=== PATIENT | female | born 1995 | race Caucasian/White ===

== ENCOUNTER 2020-05-03 09:13 | Outpatient (REF) | payer OTHER, SELFPAY ==
[2020-05-03 10:31] LABS: MANUAL DIFF FLAG NO
[2020-05-03 10:45] LABS: Glucose Urine UA NEG (NEG); Leukocyte Esterase Urine NEG (NEG); Nitrite Urine NEG (NEG); Specific Gravity - Urine >= 1.030 (1.005-1.025); Urine Blood NEG (NEG); Urine Ketones NEG (NEG); Urine Protein NEG (NEG-TRACE)
[2020-05-03 10:46] LABS: Basophils Absolute Auto 0.1 X10*3/uL (0.0-0.2); Eosinophils Absolute Auto 0.2 X10*3/uL (0.0-0.4); Hematocrit 42.1 % (37-47); Hemoglobin 13.6 g/dl (12.0-16.0); Imm Gran Abs Auto 0.02 X10*3/uL (0.00-0.03); Imm Gran Pct Auto 0.3 % (0.0-0.4); Lymphocytes Absolute Auto 2.1 X10*3/uL (1.2-4.9); Lymphocytes Percent Auto 34.1 % (20-40); Mean Corpuscular HGB Conc 32.3 g/dl (31.0-35.0); Mean Corpuscular Hemoglobin 30.2 pg (27.0-33.0); Mean Corpuscular Volume 93.3 fL (80-98); Mean Platelet Volume 11.3 fL (9.4-12.3); Monocytes Absolute Auto 0.6 X10*3/uL (0.1-1.2); Monocytes Percent Auto 9.5 % (2-11); Neutrophils Absolute Auto 3.2 X10*3/uL (2.0-8.3); Neutrophils Percent Auto 52.1 % (45-73); Platelet Count 211 X10*3/uL (160-400); Red Blood Count 4.51 X10*6/uL (4.20-5.50); White Blood Count 6.1 X10*3/uL (4.8-10.8)
[2020-05-03 10:48] LABS: Appearance Urine CLEAR; Color Urine YELLOW
[2020-05-03 11:05] LABS: Bacteria Urine TRACE /LPF; Hyaline Casts Urine 0-2 /LPF; Mucus Urine 3+ /LPF; RBC Urine 0-2 /HPF (0); Squamous Epithelial Cell Urine 2+ /LPF; WBC Urine 0-2 /HPF (0-4)
[2020-05-03 11:07] LABS: Alanine Aminotransferase 11 U/L (0-31); Albumin Level 4.7 g/dL (3.5-5.0); Alkaline Phosphatase 75 U/L (39-117); Anion Gap 11 (12-20); Aspartate Amino Transferase 16 U/L (5-31); Bilirubin Total 0.7 mg/dL (0.0-1.0); Blood Urea Nitrogen 12 mg/dL (9-16); Calcium 9.6 mg/dL (8.4-10.2); Carbon Dioxide 30 mmol/L (22-29); Chloride 104 mmol/L (96-108); Cholesterol 168 mg/dL; Estimated Glomerular Filt Rate > 60; Glucose Random 91 mg/dL (60-115); HDL Cholesterol 50 mg/dL; LDL Cholesterol Calculated 103 mg/dl; Potassium 4.9 mmol/l (3.3-5.1); Sodium 140 mmol/L (135-145); Total Protein 7.4 g/dL (6.5-8.0); Triglycerides 77 mg/dL
[2020-05-03 11:33] LABS: Free T4 (Free Thyroxine) 1.19 ng/dL (0.71-1.85); HCG Quantitative 6 mIU/mL; Thyroid Stimulating Hormone 0.76 uIU/mL (0.32-4.0)
[2020-05-03 11:36] LABS: Vitamin B12 380 pg/mL (200-900)
== END 2020-05-03 09:14 | disposition home or self-care (01) ==
LOC: HO.LAB 09:13
PROVIDERS: PCP Internal Medicine; Visit Provider Internal Medicine
DX: N92.6 Irregular menstruation, unspecified (principal); R63.4 Abnormal weight loss; E78.00 Pure hypercholesterolemia, unspecified
CPT/HCPCS: 36415; 80053; 80061; 81001; 82607; 82746; 84439; 84443; 84702; 85025

== ENCOUNTER 2020-06-26 14:34 | Outpatient (REF) | payer OTHER, SELFPAY ==
[2020-06-27 09:23] LABS: BV Int Neg Control Negative (Negative); BV Int Pos Control Positive (Positive)
[2020-06-28 09:47] LABS: C. trachomatis RNA TMA NOT DETECTED (NOT DETECTED); N. gonorrhoeae RNA TMA NOT DETECTED (NOT DETECTED)
== END 2020-06-26 14:35 | disposition home or self-care (01) ==
LOC: HO.LAB 14:34
PROVIDERS: PCP Internal Medicine; Visit Provider Advanced Practice Midwife
DX: N92.1 Excessive and frequent menstruation with irregular cycle (principal); R10.2 Pelvic and perineal pain; Z20.2 Contact with and (suspected) exposure to infections with a predominantly sexual mode of transmission; Z32.02 Encounter for pregnancy test, result negative
CPT/HCPCS: 36415; 81025; 87480; 87491; 87510; 87591; 87660; 99202

== ENCOUNTER 2020-06-29 14:57 | Outpatient (REF) | payer OTHER, SELFPAY ==
--- NOTE | ~2020-06-29 | US_ITS ---
EXAMINATION: US PELVIS COMPLETE US TRANSVAGINAL CLINICAL INFORMATION: Pelvic and perineal pain. COMPARISON: None TECHNIQUE: Transabdominal and transvaginal ultrasound of the pelvis was performed. FINDINGS: The uterus is anteverted measuring 8.3 cm in length, 4.0 cm AP and 3.3 cm in transverse dimensions. The endometrial thickness is 0.3 cm. The right ovary measures 4.2 x 3.2 x 2.8 cm and volume 19.7 mL. There is a small corpus luteal cyst measuring 1.6 x 1.9 x 2.1 cm. The left ovary measures 3.9 x 2.1 x 2.2 cm and volume 9.4 mL. There are small follicles noted. There is no free fluid in the cul-de-sac. US/US pelvic complete IMPRESSION: Small corpus luteal cyst right ovary. The left ovary and the uterus are unremarkable.
--- NOTE | ~2020-06-29 | US_ITS ---
EXAMINATION: US PELVIS COMPLETE US TRANSVAGINAL CLINICAL INFORMATION: Pelvic and perineal pain. COMPARISON: None TECHNIQUE: Transabdominal and transvaginal ultrasound of the pelvis was performed. FINDINGS: The uterus is anteverted measuring 8.3 cm in length, 4.0 cm AP and 3.3 cm in transverse dimensions. The endometrial thickness is 0.3 cm. The right ovary measures 4.2 x 3.2 x 2.8 cm and volume 19.7 mL. There is a small corpus luteal cyst measuring 1.6 x 1.9 x 2.1 cm. The left ovary measures 3.9 x 2.1 x 2.2 cm and volume 9.4 mL. There are small follicles noted. There is no free fluid in the cul-de-sac. US/US transvaginal IMPRESSION: Small corpus luteal cyst right ovary. The left ovary and the uterus are unremarkable.
[2020-06-29 17:24] LABS: Thyroid Stimulating Hormone 0.73 uIU/mL (0.32-4.0)
[2020-06-30 08:48] LABS: CT PCR NOT DETECTED (Not Detect.); NG PCR NOT DETECTED (Not Detect.)
[2020-06-30 12:22] LABS: Prolactin 3.7 ng/mL
== END 2020-06-29 14:58 | disposition home or self-care (01) ==
LOC: HO.US 14:57
PROVIDERS: Absent Provider Advanced Practice Midwife; PCP Family Medicine; Visit Provider Advanced Practice Midwife
DX: R10.2 Pelvic and perineal pain (principal); Z11.3 Encounter for screening for infections with a predominantly sexual mode of transmission; Z11.8 Encounter for screening for other infectious and parasitic diseases
CPT/HCPCS: 76830; 76856; 84146; 84443; 87491; 87591

== ENCOUNTER → 2020-07-10 11:49 | Outpatient (BNVA) | payer OTHER, SELFPAY | PROVIDERS: PCP Family Medicine; Visit Provider Advanced Practice Midwife ==

== ENCOUNTER 2020-07-11 15:57 | Outpatient (REF) | payer OTHER, SELFPAY ==
[2020-07-12 09:02] LABS: DHEA Sulfate 234 mcg/dL (18-391)
[2020-07-12 11:41] LABS: CT PCR NOT DETECTED (Not Detect.); NG PCR NOT DETECTED (Not Detect.)
[2020-07-15 12:31] LABS: Testosterone, Free 1.6 pg/mL (0.1-6.4); Testosterone, Total 20 ng/dL (2-45)
== END 2020-07-11 15:58 | disposition home or self-care (01) ==
LOC: HO.LAB 15:57
PROVIDERS: PCP Internal Medicine; Visit Provider Advanced Practice Midwife
DX: N93.9 Abnormal uterine and vaginal bleeding, unspecified (principal); L70.0 Acne vulgaris; N92.6 Irregular menstruation, unspecified; R10.2 Pelvic and perineal pain
CPT/HCPCS: 82627; 83498; 84402; 84403; 87491; 87591

== ENCOUNTER → 2020-07-24 12:03 | Outpatient (BNVA) | payer OTHER, SELFPAY | PROVIDERS: PCP Internal Medicine; Visit Provider Advanced Practice Midwife ==

== ENCOUNTER 2020-07-25 13:09 | Outpatient (REF) | payer OTHER, SELFPAY | END 2020-07-25 13:10 | disposition home or self-care (01) | LOC: HO.LAB 13:09 | PROVIDERS: PCP Internal Medicine; Visit Provider Advanced Practice Midwife | DX: Z01.419 Encounter for gynecological examination (general) (routine) without abnormal findings (principal) | CPT/HCPCS: 88142 ==

== ENCOUNTER 2020-08-17 08:29 | Outpatient (REF) | payer OTHER, SELFPAY ==
[2020-08-18 22:43] LABS: Adrenocorticotropic Hormone 14 pg/mL (6-50)
== END 2020-08-17 08:30 | disposition home or self-care (01) ==
LOC: HO.LAB 08:29
PROVIDERS: PCP Internal Medicine; Referring Provider Internal Medicine; Visit Provider Internal Medicine Endocrinology, Diabetes & Metabolism
DX: I95.1 Orthostatic hypotension (principal); R63.4 Abnormal weight loss; Z79.899 Other long term (current) drug therapy
CPT/HCPCS: 36415; 82024; 82533; 99202

== ENCOUNTER 2020-08-18 07:23 | Outpatient (REF) | payer OTHER, SELFPAY ==
[2020-08-18 08:45] LABS: Anion Gap 15 (12-20); Blood Urea Nitrogen 10 mg/dL (9-16); Calcium 9.3 mg/dL (8.4-10.2); Carbon Dioxide 24 mmol/L (22-29); Chloride 104 mmol/L (96-108); Estimated Glomerular Filt Rate > 60; Glucose Fasting 91 mg/dL (60-99); Potassium 4.7 mmol/L (3.3-5.1); Sodium 138 mmol/L (135-145)
[2020-08-18 09:08] LABS: Thyroid Stimulating Hormone 0.74 uIU/mL (0.32-4.0)
[2020-08-19 05:36] LABS: Thyroglobulin Antibodies <1 IU/mL (< or = 1)
[2020-08-19 10:02] LABS: Thyroid Peroxidase Antibodies <1 IU/mL (<9)
[2020-08-19 22:21] LABS: Triiodothyronine T3 Total 105 ng/dL (76-181)
[2020-08-21 11:42] LABS: Insulin Level Total 7.1 uIU/mL
[2020-08-21 16:52] LABS: Prolactin Undiluted 16.4 ng/mL
[2020-08-21 23:12] LABS: Adrenocorticotropic Hormone 34 pg/mL (6-50)
[2020-08-23 04:56] LABS: Proinsulin 4.7 pmol/L (< OR = 18.8)
[2020-08-23 13:01] LABS: IGF-1 (Somatomedin C) 220 ng/mL (63-373); IGF-1 Z Score (Female) 0.5 SD (-2.0 - +2.0)
[2020-08-23 21:11] LABS: Insulin Auto Antibody <0.4 U/mL (<0.4)
[2020-08-23 21:57] LABS: 21 Hydroxylase Antibody NEGATIVE (NEGATIVE)
[2020-08-25 00:57] LABS: FT4 by Equilib. Dialysis 1.6 ng/dL (0.9-2.2)
[2020-08-25 14:42] LABS: Insulin Growth Factor 2 524 ng/mL (267-616)
[2020-08-25 16:17] LABS: Chromogranin A 242 ng/mL (ADULTS: <311)
[2020-09-01 08:42] LABS: Beta-Hydroxybutyrate 0.4 mg/dL (0.0-3.0)
[2020-09-02 00:11] LABS: Insulinoma associated 2 aatb <5.4 U/mL (<5.4)
== END 2020-08-18 07:24 | disposition home or self-care (01) ==
LOC: HO.LAB 07:23
PROVIDERS: PCP Internal Medicine; Visit Provider Internal Medicine Endocrinology, Diabetes & Metabolism
DX: R63.4 Abnormal weight loss (principal)
CPT/HCPCS: 36415; 80048; 82010; 82024; 82533; 83519; 83525; 83789; 84146; 84206; 84305; 84439; 84443; 84480; 86316; 86337; 86376; 86800

== ENCOUNTER → 2020-09-19 13:18 | Outpatient (BNVA) | payer OTHER, SELFPAY | PROVIDERS: PCP Internal Medicine; Visit Provider Internal Medicine Endocrinology, Diabetes & Metabolism ==

== ENCOUNTER 2020-09-20 14:31 | Outpatient (REF) | payer OTHER, SELFPAY | END 2020-09-20 14:32 | disposition home or self-care (01) | LOC: HO.LAB 14:31 | PROVIDERS: Visit Provider Internal Medicine | DX: Z20.822 Contact with and (suspected) exposure to COVID-19 (principal) | CPT/HCPCS: C9803; U0003; U0005 ==

== ENCOUNTER 2021-01-05 16:28 | Emergency (ER) | payer OTHER, SELFPAY ==
--- NOTE | ~2021-01-05 | XR_ITS ---
EXAMINATION: XR SHOULDER, LEFT CLINICAL INFORMATION: Fall. Left shoulder pain. COMPARISON: None TECHNIQUE: Four views of the left shoulder. FINDINGS: The bones and soft tissues are normal. No fracture. Glenohumeral and acromioclavicular alignment is anatomic with normal joint space. No abnormal soft tissue calcifications. XR/XR shoulder LT min 2V IMPRESSION: Normal left shoulder.
[2021-01-05 17:55] VITALS: BP 105/60; PULSE 79; RESP 18; TEMP 36.2; O2SAT 99; BMI 16.6
--- NOTE | 2021-01-05 18:46 | ED.EXTPRO ---
HPI - Extremity Problem General Chief complaint: Extremity Injury, Upper Stated complaint: shoulder inj Time Seen by Provider: 01/05/21 18:46 Source: patient Mode of arrival: ambulatory Limitations: no limitations History of Present Illness HPI Narrative: Patient is a 25-year-old female who injured her left shoulder 1 week ago while playing [employer]. She said she was running and she tripped and she slid into a tree with her left shoulder. She states that is painful when she tries to lift it up above 90 degrees. She has not trying using ice or ibuprofen. Denies any injury or pain in her elbow wrist or hand. Did not hit her head, no loc. Related Data Previous Rx's Medication Instructions Recorded metronidazole 500 mg tablet 500 mg PO BID 7 Days #14 tab 06/30/20 (Flagyl) norethindrone (contraceptive) 0.35 0.35 mg PO DAILY #28 tab 07/25/20 mg tablet (Wilma) Allergies Allergy/AdvReac Type Severity Reaction Status Date / Time No Known Allergies Allergy Verified 07/25/20 13:31 [No Known Allergies*] Review of Systems Review of Systems: Yes all other systems are reviewed and are negative [facility] Past Medical History Medical History ADHD Migraine Migraine with aura Orthostatic hypotension Vitamin D deficiency Surgical History No pertinent past surgical history Family History Family History Father Bipolar 1 disorder High cholesterol Paternal Aunt Bipolar 1 disorder Daughter In good health Sister In good health Paternal Uncle CVD (cardiovascular disease) Paternal Grandfather Heart disease Hypertension CVD (cardiovascular disease) Social History Social History Alcohol intake: current Patient Tobacco Use Status: Never used Tobacco Years Smoked: not cigarettes Advance Directives: No Advance Directives Information Provided: No Patient : No Physical Exam Vital Signs: Vital Signs: Last Vital Signs Temp 97.1 F 01/05/21 17:55 Pulse 79 01/05/21 17:55 Resp 18 01/05/21 17:55 BP 105/60 01/05/21 17:55 Pulse Ox 99 01/05/21 17:55 Body Mass Index 16.6 Const: General: cooperative, healthy appearing, comfortable, no acute distress and well developed Orientation/consciousness: patient oriented x3 Limitations: no limitations HENMT: Head: Yes normal to inspection Eyes: General: appearance normal, both eyes and all related structures Neck: Neck: Yes normal visual inspection and Yes full ROM Resp: Effort & Inspection: normal respiratory effort and able to speak in complete sentences Skin: General skin exam: no rashes or lesions noted Neuro: General: patient oriented x3 Extrem: Other: Left shoulder, tender to palpation posterior, bones have normal alignment, no ecchymosis or signs of infection noted. Patient unable to abduct arm past 90 degrees without pain, she is unable to place her left arm to the small of her back or straight out in front past 90 degrees. General: Yes normal to inspection MDM - Extremity (Nontraumatic) Imaging Data shoulder x-ray: Attestation: I personally reviewed and interpreted this imaging study as follows: Radiologist's impression: [address] [address] XRay Report Signed Patient: Nya rKamer MR#: [id number] : 1995 Acct:[id number] Age/Sex: 25 / F ADM Date: 01/05/21 Loc: .ED Attending Dr: Ordering Physician: Claudy ED Physician Date of Service: 01/05/21 Procedure(s): XR shoulder LT min 2V Accession Number(s): [id number] cc: Generic ED Physician~ EXAMINATION: XR SHOULDER, LEFT CLINICAL INFORMATION: Fall. Left shoulder pain.? COMPARISON: None? TECHNIQUE: Four views of the left shoulder. FINDINGS: The bones and soft tissues are normal. No fracture. Glenohumeral and acromioclavicular alignment is anatomic with normal joint space. No abnormal soft tissue calcifications.? XR/XR shoulder LT min 2V IMPRESSION: Normal left shoulder. Dictated By: PRECIOUS MCKEON MD Signed By: <Electronically signed by PRECIOUS MCKEON MD in OV> 01/05/211824 DD/ 56 TD/TT:? Multimedia Artist: MARCELLO Discharge Plan Discharge Clinical Impression: Sprain of left shoulder Patient Disposition: Home, Self-Care Instructions: Shoulder Sprain (ED) Additional Instructions: As discussed, please use the splint, rest your shoulder, use ice and ibuprofen for pain. If your pain does not improve over the next week or 2, please follow-up with your primary care doctor or an orthopedic doctor. I have listed our orthopedic doctors information below. Prescriptions: No Action metronidazole [Flagyl] 500 mg tablet 500 mg PO BID 7 Days Qty: 14 RF: 0 norethindrone (contraceptive) [Wilma] 0.35 mg tablet 0.35 mg PO DAILY Qty: 28 RF: 4 Referrals: Renard Hunter MD [Physician] - 2 weeks (shoulder sprain) Interventions: ED Discharge Assessment Last Done: 01/05/21 19:53 Discharge Date/Time: 01/05/21 19:55
== END 2021-01-05 19:55 | disposition home or self-care (01) ==
PROVIDERS: Emergency Provider Emergency Medicine; PCP Internal Medicine
DX: S43.402A Unspecified sprain of left shoulder joint, initial encounter (principal); M25.512 Pain in left shoulder; X58.XXXA Exposure to other specified factors, initial encounter; Y93.9 Activity, unspecified; Y92.9 Unspecified place or not applicable; Y99.9 Unspecified external cause status; Z79.899 Other long term (current) drug therapy
CPT/HCPCS: 29105; 73030; 99283

== ENCOUNTER 2021-09-10 13:16 | Outpatient (REF) | payer OTHER, SELFPAY ==
[2021-09-11 07:18] LABS: CT PCR NOT DETECTED (Not Detect.); NG PCR NOT DETECTED (Not Detect.)
[2021-09-11 10:55] LABS: BV Int Neg Control Negative (Negative); BV Int Pos Control Positive (Positive)
== END 2021-09-10 13:17 | disposition home or self-care (01) ==
LOC: HO.LAB 13:16
PROVIDERS: PCP Internal Medicine; Visit Provider Advanced Practice Midwife
DX: Z01.411 Encounter for gynecological examination (general) (routine) with abnormal findings (principal); N89.8 Other specified noninflammatory disorders of vagina; Z20.2 Contact with and (suspected) exposure to infections with a predominantly sexual mode of transmission; N92.6 Irregular menstruation, unspecified
CPT/HCPCS: 81025; 87480; 87491; 87510; 87591; 87660

== ENCOUNTER 2022-03-08 09:42 | Outpatient (REF) | payer OTHER, SELFPAY ==
[2022-03-08 18:12] LABS: CT PCR NOT DETECTED (Not Detect.); NG PCR NOT DETECTED (Not Detect.)
[2022-03-09 15:01] LABS: BV Int Neg Control Negative (Negative); BV Int Pos Control Positive (Positive)
== END 2022-03-08 09:43 | disposition home or self-care (01) ==
LOC: HO.LNP 09:42
PROVIDERS: Visit Provider Advanced Practice Midwife
DX: Z11.3 Encounter for screening for infections with a predominantly sexual mode of transmission (principal); R10.2 Pelvic and perineal pain; N89.8 Other specified noninflammatory disorders of vagina
CPT/HCPCS: 87480; 87491; 87510; 87591; 87660; 99212

== ENCOUNTER 2022-07-04 08:13 | Outpatient (REF) | payer OTHER, SELFPAY ==
[2022-07-04 18:38] LABS: CT PCR DETECTED (Not Detect.); NG PCR NOT DETECTED (Not Detect.)
[2022-07-05 07:59] LABS: Syphilis Screen Nonreactive (Nonreactive)
[2022-07-05 08:21] LABS: HBc Num1 0.08 S/CO (0.00-0.79); HIV AB/AG Nonreactive (Nonreactive); HIV Num 1 0.05 S/CO (0.00-0.99); Hepatitis B Core Antibody Nonreactive (Nonreactive); ~HepC Num1 0.15 S/CO (0.00-0.79); ~Hepatitis C Antibody Nonreactive (Nonreactive)
[2022-07-05 11:14] LABS: BV Int Neg Control Negative (Negative); BV Int Pos Control Positive (Positive)
== END 2022-07-04 08:14 | disposition home or self-care (01) ==
LOC: HO.LAB 08:13
PROVIDERS: PCP Internal Medicine; Visit Provider Advanced Practice Midwife
DX: Z11.4 Encounter for screening for human immunodeficiency virus [HIV] (principal); R10.2 Pelvic and perineal pain; Z20.2 Contact with and (suspected) exposure to infections with a predominantly sexual mode of transmission
CPT/HCPCS: 0353U; 36415; 86704; 86780; 86803; 87389; 87480; 87510; 87660; 99212

== ENCOUNTER 2022-07-04 08:44 | Outpatient (REF) | payer OTHER, SELFPAY | END 2022-07-04 08:45 | disposition home or self-care (01) | LOC: HO.LNP 08:44 | PROVIDERS: Visit Provider Advanced Practice Midwife | DX: Z13.89 Encounter for screening for other disorder (principal) ==

== ENCOUNTER 2022-09-13 09:41 | Outpatient (REF) | payer OTHER, SELFPAY ==
[2022-09-13 14:42] LABS: CT PCR NOT DETECTED (Not Detect.); NG PCR NOT DETECTED (Not Detect.)
[2022-09-15 14:05] LABS: BV Int Neg Control Negative (Negative); BV Int Pos Control Positive (Positive)
== END 2022-09-13 09:42 | disposition home or self-care (01) ==
LOC: HO.LNP 09:41
PROVIDERS: PCP Internal Medicine; Visit Provider Advanced Practice Midwife
DX: A74.9 Chlamydial infection, unspecified (principal)
CPT/HCPCS: 0353U; 87480; 87510; 87660; 99212

== ENCOUNTER 2023-02-24 14:03 | Emergency (ER) | payer OTHER, SELFPAY ==
--- NOTE | ~2023-02-24 | XR_ITS ---
EXAMINATION: XR LUMBOSACRAL SPINE CLINICAL INFORMATION: Low back pain. COMPARISON: None available. TECHNIQUE: Three views of the lumbosacral spine. FINDINGS: There are 5 nonrib-bearing lumbar vertebral bodies. There is gentle rightward curvature abdomen the thoracolumbar junction. Normal sagittal alignment. Vertebral body heights and intervertebral disc spaces are maintained. Pedicles are intact. Sacroiliac joints are intact. XR/XR lumbar spine 2-3V IMPRESSION: No acute abnormality.
[2023-02-24 14:36] VITALS: BP 143/98; PULSE 135; RESP 18; TEMP 36.9; O2SAT 97; BMI 18.3
--- NOTE | 2023-02-24 14:37 | ED_ITS ---
HPI - General Adult General Chief complaint: Back Pain/Injury Stated complaint: sciatic pain Time Seen by Provider: 02/24/23 17:05 Source: patient, RN notes reviewed and old records reviewed Mode of arrival: ambulatory History of Present Illness HPI narrative: 27-year-old female with a past medical history of orthostatic hypotension, presenting to the ED complaining of left low back/buttock pain radiating down left lower extremity with associated numbness/paresthesias to toes x3 months worsening over the past 3 days. Denies known injury/trauma or fall, weakness, incontinence/retention, hematuria, abdominal pain Onset (ago): month(s) Related Data Home Medications Medication Instructions Recorded Confirmed No Known Home Meds 09/13/22 09/13/22 Allergies Allergy/AdvReac Type Severity Reaction Status Date / Time No Known Allergies Allergy Verified 09/13/22 09:46 [No Known Allergies*] Review of Systems Review of Systems: Constitutional: No Fever, No Chills ENT/Mouth: No Ear Pain, No Nasal Congestion, No sore throat, No Rhinorrhea, No Swallowing Difficulty Cardiovascular: No Chest Pain, No SOB Respiratory: No Cough, No Sputum Gastrointestinal: No Nausea, No Vomiting, No Diarrhea, No Constipation, No Abdo cedric pain Genitourinary: No Dysuria, No Urinary Frequency, No Hematuria, No Urinary Incontinence/retention, No Flank Pain Musculoskeletal: + joint pain, No Myalgias, No Joint Swelling Skin: No Skin Lesions, No rash Neuro: No Weakness, + Numbness, + Paresthesias Yes all other systems are reviewed and are negative Constitutional: Constitutional: Reports as per HPI Neurologic: Denies Sensory deficit (Neuro) [facility] Past Medical History Attestation statement: The following information was validated with the patient. Source: old records reviewed Medical History Orthostatic hypotension Migraine with aura Vitamin D deficiency Migraine ADHD Surgical History No pertinent past surgical history Family History Family History Father Bipolar 1 disorder High cholesterol Paternal Aunt Bipolar 1 disorder Daughter In good health Sister In good health Paternal Uncle CVD (cardiovascular disease) Paternal Grandfather Heart disease Hypertension CVD (cardiovascular disease) Maternal Aunt History of breast cancer Social History Social History Household Members: Children Housing: Apartment Alcohol intake: current Alcohol intake frequency: holidays/special occasions only Patient Tobacco Use Status: Never used Tobacco Years Smoked: not cigarettes Substance Use Type: Marijuana Advance Directives: No Advance Directives Information Provided: No Sexual orientation: Straight/Heterosexual Gender identity: Female Physical Exam ED Vital Signs: Vital Signs - 24 hr 02/24/23 14:36 02/24/23 17:41 Temperature 98.5 F Pulse Rate 135 H 83 Respiratory Rate 18 18 Blood Pressure 143/98 H 114/64 Pulse Oximetry 97 100 Oxygen Delivery Method Room Air Room Air BMI result Body Mass Index 18.3 Const General: cooperative, healthy appearing and no acute distress Orientation/consciousness: patient oriented x3 Limitations: no limitations HENMT Head: Yes normal to inspection and Yes atraumatic Ears: hearing grossly normal bilaterally General nose exam: Normal external nose present Face and sinus: Yes normal facial exam Eyes General: appearance normal, both eyes and all related structures EOM: EOMs intact bilaterally Neck Neck: Yes normal visual inspection and Yes no meningeal signs Resp Effort & Inspection: normal respiratory effort and no respiratory distress Cardio Rate: regular rate Peripheral pulses: Peripheral pulses 2+ throughout GI Inspection: Yes normal to inspection Palpation (GI): Soft to palpation, nontender, no guarding and not rigid General: Yes no CVA tenderness Back/Spine/Pelvis Other: No midline cervical/thoracic/lumbar spinous tenderness/step-off or deformity. + left lower lumbar MSK/buttock tenderness to palpation reproducing subjective complaint. No erythema/ecchymosis or warmth Back: no CVA tenderness Skin Rashes: no rashes Wounds: no wounds Neuro Other: Strength intact throughout. No saddle anesthesia. Sensation intact to light touch. Neurovascular intact distally General: patient oriented x3, gait normal, tone normal, moves all extremities and no meningeal signs Cranial nerves: Yes CN's II-XII intact bilaterally Gait exam (Neuro): Normal gait present Motor exam (neuro): 5/5 motor strength present throughout Sensory Exam: No Sensory deficit (Neuro) Extrem General: Yes normal to inspection Course Course Course Narrative: RME- 27-year-old female presents for evaluation of left lower back pain that radiates her left leg. She reports numbness to the back of left thigh and to the left 2nd and 3rd toes. Denies any trauma. No history of back pain. Plan for x-rays 1706--XR lumbar spine 2-3V IMPRESSION: No acute abnormality. >1830--on re-evaluation patient reports symptomatic improvement. Feels safe for discharge home at this time Results discussed with patient including worrisome signs and symptoms and strict return precautions, and when to return to the emergency department. They verbalized understanding and feel safe for discharge at this time. Medications Administered Discontinued Medications Generic Name Dose Route Start Last Admin Trade Name Allison PRN Reason Stop Dose Admin Acetaminophen 650 mg 02/24/23 17:11 02/24/23 17:33 Acetaminophen 325 Mg Tablet PO 02/24/23 17:12 650 mg ONCE ONE Administration Cyclobenzaprine HCl 10 mg 02/24/23 17:10 02/24/23 17:33 Cyclobenzaprine Hcl 10 Mg Tablet PO 02/24/23 17:11 10 mg ONCE ONE Administration Ketorolac Tromethamine 30 mg 02/24/23 14:40 02/24/23 14:44 Ketorolac Tromethamine 30 Mg/Ml Vial IM 02/24/23 14:41 30 mg ONCE ONE Administration Lidocaine 1 patch 02/24/23 17:10 02/24/23 17:34 Lidocaine 4 % Patch Adh..Patch TRANSDERMA 02/24/23 17:11 1 patch ONCE ONE Administration Protocol Oxycodone HCl 5 mg 02/24/23 17:52 02/24/23 18:02 Oxycodone Hcl Immed Release 5 Mg Tablet PO 02/24/23 17:53 5 mg ONCE ONE Administration Medical Decision Making Medical Decision Making MDM Narrative: 27-year-old female with a past medical history of orthostatic hypotension, presenting to the ED complaining of left low back/buttock pain radiating down left lower extremity with associated numbness/paresthesias to toes x3 months worsening over the past 3 days. On exam tachycardic likely from pain, NAD, nontoxic appearing, no midline spinous tenderness throughout, physical exam as above with reproducible left lower lumbar MSK/upper buttock tenderness to palpation, no red flag symptoms. Abdomen soft/nontender. Concern for sciatica vs MSK pain/strain or possible herniated disc. Low suspicion for cauda equina/cord compression, epidural abscess, renal stone, pyelo, UTI, appendicitis/diverticulitis Plan: X-rays ordered in triage, pain control, re-evaluate Please refer to course for remaining clinical decision making, interpretation of labs/imaging results, and discussions with consultants and/or family members. Differential Diagnosis Differential Diagnoses: The differential diagnosis associated with the presentation includes As above Independent Interpretation I performed an independent interpretation of an: Plain X-Ray Radiology Impression Discussion of test interpretation with radiology: I have reviewed the radiologist's reading. External Record Review External record reviewed: Inpatient record, Office record, Outpatient record, Prior outpatient labs, Prior outpatient radiology, Primary care record and Outside ED record Tests considered The following testing was considered but not selected: As above Prescription Management I considered prescription management with: Pain Medication Discharge Plan Discharge Clinical Impression: Lumbar radiculopathy Patient Disposition: Home, Self-Care Instructions: Lumbar Radiculopathy (ED) Additional Instructions: Your pain is likely musculoskeletal Flexeril is a muscle relaxer, take at night as it makes you drowsy, do not drive, drink alcohol, or operate machinery while taking it Naproxen as an anti-inflammatory / pain medication, take with food Lidoderm patches are numbing patches, apply to painful area In addition take Tylenol at home If symptoms persist or worsen, pain becomes unbearable, you developed urinary retention or incontinence, or weakness return to the ED Prescriptions: No Action No Known Home Meds Referrals: Armida Deutsch MD [Primary Care Provider] - 5 days
[2023-02-24] MEDS: Ketorolac Tromethamine 30 MG/ML VIAL IM (14:44)
[2023-02-24] MEDS: Cyclobenzaprine HCl 10 MG TABLET PO (17:33)
[2023-02-24] MEDS: Acetaminophen 325 MG TABLET 650 MG PO (17:33)
[2023-02-24] MEDS: Lidocaine 4 % Patch ADH..PATCH 1 PATCH TRANSDERMA (17:34)
--- NOTE | 2023-02-24 17:36 | PC.NURSE ---
medication administered per provider order. pt c/o9/10 lower back pain that radiates to LLE. will reassess pain level shortly.
[2023-02-24 17:41] VITALS: BP 114/64; PULSE 83; RESP 18; O2SAT 100
[2023-02-24] MEDS: oxyCODONE HCl Immed Release 5 MG TABLET PO (18:02)
--- NOTE | 2023-02-24 18:03 | PC.NURSE ---
pt tearful d/t pain level - provider aware. pt resting w/ the lights dimmed at this time. pt repositioned to comfort. medication administered per provider order.
== END 2023-02-24 18:46 | disposition home or self-care (01) ==
PROVIDERS: Emergency Provider Student in an Organized Health Care Education/Training Program; PCP Internal Medicine
DX: M54.16 Radiculopathy, lumbar region (principal); M54.50 Low back pain, unspecified; M79.605 Pain in left leg
CPT/HCPCS: 72100; 96372; 99283; 99284; J1885

== ENCOUNTER 2023-02-27 15:51 | Outpatient (AMB) | payer OTHER, SELFPAY ==
[2023-02-27 15:56] VITALS: BP 90/60; PULSE 111; O2SAT 96; BMI 19.1
--- NOTE | 2023-02-27 15:56 | A.OFFPC_ITS ---
Vital Signs 02/27/23 15:56 Height 5 ft 5 in Weight 115 lb 0.2 oz BMI 19.1 BP 90/60 Blood Pressure Location Lt brachial Position Sitting Pulse 111 H Pulse Source Pulse Oximeter Pulse Oximetry (%) 96 Oxygen Delivery Method Room Air Intake Visit Reasons: Back of L thigh pain Intake Note: pt states Er visit X3-4days ago [facility] with symptoms of left leg numbness and pain with no relief Precision Structural Metal Fitter Required: No Allergies No Known Allergies [No Known Allergies*] Allergy (Verified 02/27/23 16:13) Medication List - Last Reconciled 02/27/23 by VIVEK Crandall acetaminophen (Tylenol Extra Strength) 500 mg PO Q6H PRN cyclobenzaprine 5 mg PO Q8H PRN 5 days lidocaine 5% (Lidoderm) 1 patch topical DAILY PRN MDD remove after 12 hours naproxen 500 mg PO BID PRN 10 days Tobacco use date assessed: 02/27/23 Dental Screening Dental Screen Date: 02/27/23 Did you have a dental visit in the last 12 months?: Yes Did you have a dental problem in the last 6 months where you did not have access to dental care?: No Was dental information given to patient?: Patient has dentist HPI Back of L thigh pain HPI Details Patient is a 27-year-old female who presents today to follow-up after [place] [facility] visit 02/24/2023 due to back pain and was diagnosed with lumbar radiculopathy. Per ED notes: 27-year-old female with a past medical history of orthostatic hypotension, presenting to the ED complaining of left low back/buttock pain radiating down left lower extremity with associated numbness/paresthesias to toes x3 months worsening over the past 3 days. Denies known injury/trauma or fall, weakness, incontinence/retention, hematuria, abdominal pain 27-year-old female presents for evaluati on of left lower back pain that radiates her left leg. She reports numbness to the back of left thigh and to the left 2nd and 3rd toes. Denies any trauma. No history of back pain. Plan for x-rays 1706--XR lumbar spine 2-3V IMPRESSION: No acute abnormality. >1830--on re-evaluation patient reports symptomatic improvement. Feels safe for discharge home at this time Results discussed with patient including worrisome signs and symptoms and strict return precautions, and when to return to the emergency department. They verbalized understanding and feel safe for discharge at this time. Your pain is likely musculoskeletal Flexeril is a muscle relaxer, take at night as it makes you drowsy, do not drive, drink alcohol, or operate machinery while taking it Naproxen as an anti-inflammatory / pain medication, take with food Lidoderm patches are numbing patches, apply to painful area In addition take Tylenol at home If symptoms persist or worsen, pain becomes unbearable, you developed urinary retention or incontinence, or weakness return to the ED Today, patient reports that she has been having this pain for the past 3 months. Question maybe she slept wrong when she started with this pain. Reports that cyclobenzaprine and naproxen help with pain for about 1 hour and then pain starts again. Reports pain in her left low back, left buttock that radiates down to her left lower extremity. Also with numbness in her left foot. Denies changes in bowel/bladder. Reports that pain is worse with activity. Pain slightly better when laying down. [facility] Medical History Orthostatic hypotension Migraine with aura Vitamin D deficiency Migraine ADHD Surgical History No pertinent past surgical history Family History Father Bipolar 1 disorder High cholesterol Paternal Aunt Bipolar 1 disorder Daughter In good health Sister In good health Paternal Uncle CVD (cardiovascular disease) Paternal Grandfather Heart disease Hypertension CVD (cardiovascular disease) Maternal Aunt History of breast cancer Social History Household Members: Children Housing: Apartment Alcohol intake: current Alcohol intake frequency: holidays/special occasions only Patient Tobacco Use Status: Never used Tobacco Years Smoked: not cigarettes Substance Use Type: Marijuana Sexual orientation: Straight/Heterosexual Gender identity: Female Cognitive needs: No Hearing needs: No Vision needs: No Female Reproductive History Menstrual Age of Menarche: 10 Questionnaire Thrive Questionnaire Date Thrive assessed: 02/27/23 AUDIT C Alcohol Use Questionnaire (AUDIT-C) 1. How often do you have a drink containing alcohol?: Monthly or less 2. How many drinks containing alcohol do you have on a typical day when you are drinking?: 3 or 4 Total Score: 2 Score Reviewed/Action Taken: No MAE-7 AMB Questionnaire MAE-7 Date MAE - 7 assessed: 02/27/23 Source: Developed by Drs. Jalil Castillo, Aurelia Esquivel, Manish Villafana and colleagues, with an educational eusebio from [employer]. Review of Systems Const Denies body aches, Denies chills, Denies fever(s) and Denies headache(s) ENT Denies dizziness, Denies otalgia, Denies headache(s), Denies nasal discharge, Denies sinus pain and Denies sore throat Card Denies chest pain, Denies edema, Denies lightheadedness and Denies dyspnea Resp Denies cough, Denies dyspnea and Denies wheezing GI Denies abdominal pain, Denies constipation, Denies diarrhea, Denies nausea and Denies vomiting Denies dysuria Musc Reports as per HPI, Reports back pain and Denies myalgias Skin/Breast Denies rash Neuro Denies dizziness and Denies headache(s) Aller/Immun Denies wheezing Physical exam (Primary Care) Vital Signs: Last Vital Signs Pulse 111 H 02/27/23 15:56 BP 90/60 02/27/23 15:56 Pulse Ox 96 02/27/23 15:56 Oxygen Delivery Method Room Air 02/27/23 15:56 BMI result Body Mass Index 19.1 Tobacco/Smoking Status: Tobacco use Status Tobacco use date assessed 02/27/23 02/27/23 15:57 Patient Tobacco Use Status Never used Tobacco 02/27/23 15:57 Thrive Assessment: Date of Thrive Assessment Date Thrive assessed 02/27/23 02/27/23 15:57 Const General: cooperative and no acute distress Orientation/consciousness: patient oriented x3 HENMT Head: Yes normocephalic and Yes atraumatic Throat: Yes posterior oropharynx normal Eyes General: appearance normal, both eyes and all related structures Pupils: Equal, round and reactive pupils present Neck Neck: Yes normal visual inspection, Yes full ROM and Yes no lymphadenopathy Resp Effort & Inspection: normal respiratory effort and able to speak in complete sentences Auscultation: clear to auscultation bilaterally, no crackles, no rales, no rhonchi and no wheezes Cardio Rate: regular rate Rhythm: regular rhythm Heart sounds: S1 normal heart sound present and S2 normal heart sound present GI Auscultation: normal bowel sounds General: No CVA tenderness Back/Spine/Pelvis Back: No CVA tenderness Thoracic/Lumbar Spine: pain with thoraco-lumbar ROM, paraspinal muscle tenderness (Left lumbar aspect), No thoracic spinal tenderness, lumbar spinal tenderness and straight leg raise positive (Left) Skin General skin exam: no rashes or lesions noted Neuro General: patient oriented x3 Cranial nerves: Yes Equal, round and reactive pupils present Gait exam (Neuro): Normal gait present Motor exam (neuro): 5/5 motor strength present throughout Extrem General: Yes full ROM and No edema Assessment and Plan Assessment & Plan (1) Lumbar radiculopathy: Code(s): M54.16 - Radiculopathy, lumbar region Plan: Urgent referral to physical therapy Start prednisone for 5 days Increase cyclobenzaprine to 10 mg t.i.d. p.r.n.-educated about drowsiness Continue naproxen b.i.d. p.r.n. Start diclofenac cream q.i.d. p.r.n. Encouraged heat/cold packs p.r.n. Signs and symptoms reviewed when to notify provider or go to the emergency department. Follow-up with PCP in 3 months or sooner as needed Orders: Orders PT Evaluation and Treatment Today M54.16 - Radiculopathy, lumbar region Medications: New prednisone 40 mg (2 x 20 mg) PO DAILY 5 days 10 tabs 0RF M54.16 - Radiculopathy, lumbar region cyclobenzaprine 10 mg PO TID PRN 21 tabs 0RF muscle spasm M54.16 - Radiculopathy, lumbar region diclofenac sodium 1% (Arthritis Pain (diclofenac)) 2 grams topical QID PRN 100 grams 0RF pain M54.16 - Radiculopathy, lumbar region Refilled naproxen 500 mg PO BID 10 days PRN 20 tabs 0RF pain Discontinued cyclobenzaprine Discontinued Reason: Doctor's Order 5 mg PO Q8H 5 days PRN 14 tabs 0RF pain (scale score 7-10) Coding Level of Care Code Est Pt Level 3 (58963) Diagnoses Lumbar radiculopathy M54.16
== END 2023-02-27 16:29 | disposition home or self-care (01) ==
PROVIDERS: PCP Internal Medicine; Visit Provider Nurse Practitioner Family
DX: M54.16 Radiculopathy, lumbar region (principal)
CPT/HCPCS: 99213

== ENCOUNTER 2023-06-05 15:54 | Outpatient (AMB) | payer OTHER, SELFPAY ==
[2023-06-05 16:05] VITALS: BP 102/60; PULSE 80; O2SAT 99; BMI 17.8
--- NOTE | 2023-06-05 16:05 | MHC.PC.OV ---
Vital Signs 06/05/23 16:05 Height 5 ft 5 in Weight 107 lb BMI 17.8 BP 102/60 Blood Pressure Location Lt brachial Position Sitting Pulse 80 Pulse Source Pulse Oximeter Pulse Oximetry (%) 99 Oxygen Delivery Method Room Air Intake Visit Reasons: back pain Lead Generation Specialist Required: No Fertilizer Processing Supervisor: Not Required per policy Accompanied by: Self / Same As Patient Allergies No Known Allergies [No Known Allergies*] Allergy (Verified 06/05/23 16:06) Tobacco use date assessed: 06/05/23 Dental Screening Dental Screen Date: 06/05/23 Did you have a dental visit in the last 12 months?: No Did you have a dental problem in the last 6 months where you did not have access to dental care?: No Was dental information given to patient?: Patient has dentist HPI back pain HPI Details 27-year-old female with a history of irregular menstrual bleeding coming in for follow-up. Last seen in 2020. Patient saw the nurse practitioner in February 2023 having back pain patient was prescribed muscle relaxant naproxen and physical therapy- has not been for PT and awaiting for call. asking for letter to have elevator toro [facility] Medical History Orthostatic hypotension Migraine with aura Vitamin D deficiency Migraine ADHD Surgical History No pertinent past surgical history Family History Father Bipolar 1 disorder High cholesterol Paternal Aunt Bipolar 1 disorder Daughter In good health Sister In good health Paternal Uncle CVD (cardiovascular disease) Paternal Grandfather Heart disease Hypertension CVD (cardiovascular disease) Maternal Aunt History of breast cancer Social History Household Members: Children Housing: Apartment Alcohol intake: current Alcohol intake frequency: holidays/special occasions only Patient Tobacco Use Status: Never used Tobacco Years Smoked: not cigarettes Substance Use Type: Marijuana Current occupational status: employed Sexual orientation: Straight/Heterosexual Gender identity: Female Cognitive needs: No Hearing needs: No Vision needs: No Female Reproductive History Menstrual Age of Menarche: 10 Questionnaire PHQ-9 Over the last 2 weeks, how often have you been bothered by any of the following problems? 1. Little interest or pleasure in doing things: several days 2. Feeling down, depressed, or hopeless: several days 3. Trouble falling or staying asleep, or sleeping too much: more than half the days 4. Feeling tired or having little energy: several days 5. Poor appetite or overeating: more than half the days 6. Feeling bad about yourself - or that you are a failure or have let yourself or your family down: nearly every day 7. Trouble concentrating on things, such as reading the newspaper or watching television: several days 8. Moving or speaking so slowly that other people could have noticed. Or the opposite - being so fidgety or restless that you have been moving around a lot more than usual: not at all 9. Thoughts that you would be better off or of hurting yourself in some way: not at all Total score: 11 Source: Developed by Drs. Jalil Castillo, Aurelia Esquivel, Manish Villafana and colleagues, with an educational eusebio from [employer]. Thrive Questionnaire Date Thrive assessed: 06/05/23 I am a: Patient What is your living situation today?: I have a steady place to live Within the past 12 months, did the food you bought not last and you didn't have the money to get more?: Never true Within the past 12 months, did you worry whether your food would run out before you got money to buy more?: Never true Do you have trouble paying for medicines?: No Do you have trouble getting transportation to medical appointments?: No Do you have trouble paying your heating and electricity bill?: No Do you have trouble taking care of your child, family member or friend?: No Do you have trouble with day-to-day activities such as bathing, preparing meals, shopping, managing finances, etc.?: No Are you currently unemployed and looking for a job?: No Are you interested in more education?: No Please select the resources that you would like help with: None THRIVE Score: 0 AUDIT C Alcohol Use Questionnaire (AUDIT-C) 1. How often do you have a drink containing alcohol?: Monthly or less 2. How many drinks containing alcohol do you have on a typical day when you are drinking?: 3 or 4 Total Score: 2 Score Reviewed/Action Taken: No MAE-7 AMB Questionnaire MAE-7 Date MAE - 7 assessed: 06/05/23 Feeling nervous, anxious, or on edge: 2 = More than half the days Not being able to stop or control worryin = More than half the days Worrying too much about different things: 1 = Several days Trouble relaxin = More than half the days Being so restless that it is hard to sit still: 2 = More than half the days Becoming easily annoyed or irritable: 1 = Several days Feeling afraid as if something awful might happen: 0 = Not at all Total MAE-7 score (0-4 normal; 5-9 mild; 10-14 moderate; 15-21 severe): 10 Source: Developed by Drs. Jalil Castillo, Aurelia Esquivel, Manish Villafana and colleagues, with an educational eusebio from [employer]. Physical exam (Primary Care) Vital Signs: Last Vital Signs Pulse 80 06/05/23 16:05 BP 102/60 06/05/23 16:05 Pulse Ox 99 06/05/23 16:05 Oxygen Delivery Method Room Air 06/05/23 16:05 BMI result Body Mass Index 17.8 Tobacco/Smoking Status: Tobacco use Status Tobacco use date assessed 06/05/23 06/05/23 16:07 Patient Tobacco Use Status Never used Tobacco 06/05/23 16:07 PHQ-9: PHQ-9 Score PHQ-9: Total score 11 06/05/23 16:15 Thrive Assessment: Date of Thrive Assessment Date Thrive assessed 06/05/23 06/05/23 16:07 Const General: alert; No acute distress Eyes Conjunctivae: conjunctivae normal Resp Auscultation: clear to auscultation bilaterally Cardio Rate: regular rate Rhythm: regular rhythm GI Inspection: Yes normal to inspection Extrem General: Yes normal to inspection and No edema Assessment and Plan Assessment & Plan (1) Low back pain: Code(s): M54.50 - Low back pain, unspecified (2) Underweight: Code(s): R63.6 - Underweight (3) Sciatic nerve pain: Code(s): M54.30 - Sciatica, unspecified side Plan: awaiting Physical therapy Medications: Refilled cyclobenzaprine 10 mg PO TID PRN 30 tabs 0RF muscle spasm M54.16 - Radiculopathy, lumbar region Coding Level of Care Code Est Pt Level 4 (88851) Diagnoses Low back pain M54.50 Underweight R63.6 Sciatic nerve pain M54.30
== END 2023-06-05 16:48 | disposition home or self-care (01) ==
PROVIDERS: PCP Internal Medicine; Visit Provider Internal Medicine
DX: M54.50 Low back pain, unspecified (principal); R63.6 Underweight; M54.30 Sciatica, unspecified side
CPT/HCPCS: 99214

== ENCOUNTER 2023-07-29 10:00 | Outpatient (RCR) | payer OTHER, SELFPAY ==
--- NOTE | 2023-07-10 18:37 | MHC.PT.EP ---
[facility] [place] Office [place] Office [place] Office [address] [place] Smith [address] [phone] F: [phone] F: [phone] F: [phone] F: [phone] Physical Therapy Plan of Care Date of Evaluation: 07/10/23 Date of Surgery: n/a Diagnosis: Radiculopathy, lumbar region Assessment: Pt is a pleasant and motivated 27yo F who presents to PT with low back pain radiating into LLE for ~6 months. Pt presents to PT with current impairments in pain, decreased lumbar ROM, decreased core stabilization, decreased hip/glute strength, soft tissue restrictions, decreased muscle length, impaired posture, and impaired body mechanics. Her symptoms improve in extension based positions. She is limited functionally by prolonged sitting, prolonged standing, bending, lifting, and twisting. She is an excellent candidate for skilled PT in order to address current impairments to facilitate return to pain-free PLOF. She is recommended to be seen 2x/week for 4 weeks and will be reassessed at that time Frequency and Duration: The patient will be seen 2x/week for 4 weeks Short Term Goals: Pt will be I with HEP to promote self management of symptoms Pt will have centralization of symptoms Customs Opener Verifier Packer Goals: Pt will improve L knee extension strength to at least 4+/5 to assist with standing and walking Pt will tolerate prolonged standing and sitting > 30 minutes without radicular symptoms Pt will demonstrate ability to squat and moss picker object from the floor with proper mechanics and minimal to no discomfort Treatment Plan: Modalities to reduce pain, spasms and effusion. Manual therapy to restore motion and function. Therapeutic exercise to improve strength and flexibility. Neuromuscular re-education for posture and balance. Therapeutic activities to return to functional activities of daily living. Electronically signed by: Marisel Capps, PT, DPT Please sign and return to therapist. Thank you for your referral.
--- NOTE | 2023-09-30 15:25 | MHC.PT.DC ---
[facility] [place] Office [place] Office [place] Office [address] Wellington Smith [address] [phone] F: [phone] F: [phone] F: [phone] F: [phone] Physical Therapy Discharge Report Diagnosis: Radiculopathy, lumbar region Date of Surgery: n/a Date of Evaluation: 07/10/23 Date of Discharge: 09/30/23 Treatments to Date: 4 Cancellations to Date: 3 No Shows to Date: 4 Discharge Status: Visit Non-compliance Discharge Summary: Pt was seen for PT from 07/10/23-07/29/23. Her last attended appointment was 07/29/23. She has had multiple cancellations and no-shows since SOC. She is being D/C from skilled PT per [facility] attendance policy and visit non-compliance. Pt current level of function unknown at this time Electronically signed by: Marisel Capps, PT, DPT Please sign and return to therapist. Thank you for your referral.
== END 2023-09-30 15:24 | disposition home or self-care (01) ==
LOC: HO.PT 10:00
PROVIDERS: PCP Internal Medicine; Visit Provider Nurse Practitioner Family
DX: M54.16 Radiculopathy, lumbar region (principal)
CPT/HCPCS: 97110; 97140; 97161; 97530